=== PATIENT | male | born 1960 | race Caucasian/White ===

== ENCOUNTER 2024-03-28 06:02 | Day surgery (SDC) | payer OTHER, SELFPAY ==
[2024-03-25 06:57] VITALS: BMI 31.3
[2024-03-25 08:48] LABS: Hematocrit 43.5 % (39.0-52.0); Hemoglobin 14.5 g/dL (13.0-18.0); Mean Corp Hgb Conc. 33.3 g/dL (33.0-37.0); Mean Corpuscular Hgb 28.3 pg (27.0-31.0); Mean Corpuscular Volume 84.8 fL (80.0-94.0); Mean Platelet Volume 9.5 fL (7.4-10.4); Platelet Count 224 10^3/uL (130-400); Red Blood Cell Count 5.13 10^6/uL (4.70-6.10); Red Cell Dist. Width 13.4 % (11.5-14.5); White Blood Cell Count 8.5 10^3/uL (4.8-10.8)
[2024-03-25 09:22] LABS: Blood Urea Nitrogen 22 mg/dl (9-20); Calcium 10.2 mg/dl (8.4-10.2); Carbon Dioxide 28 mmol/L (22-30); Chloride 100 mmol/L (98-107); Estimated Creatinine Clearance 99 ml/min; Glucose 171 mg/dl (70-99); Potassium 5.3 mmol/L (3.5-5.1); Sodium 138 mmol/L (135-145); eGFR > 60.00
[2024-03-28] VITALS (8 sets, daily range): BP systolic 128–163; BP diastolic 79–96; BMI 31.3
--- NOTE | 2024-03-28 06:55 | W.SUR.PREOP ---
Pre-Operative Surgical Note
-
I have examined this patient prior to the performance of the scheduled procedure.
The patient's condition is unchanged from the time of the current History and
Physical and the patient is able to undergo the scheduled procedure.
[2024-03-28 07:19] LABS: Glucose - Point of Care 181 mg/dl (70-99)
[2024-03-28] MEDS: VANCOCIN 300 MG IV (07:19)
[2024-03-28] MEDS: VANCOCIN 300 ML IV (07:19)
[2024-03-28] MEDS: TYLENOL 1000 MG PO (07:22)
[2024-03-28] MEDS: NORMOSOL-R 1000 IV (07:29)
--- NOTE | 2024-03-28 09:33 | W.IMMPOSTOP ---
Addendum entered and electronically signed by Ace Todd MD 03/28/24 09:44:
#[id number]
Original Note:
Surgical Immed Post Op Note
-
Primary Surgeon: Peyton
Assisting Surgeon: SNEHAL Tao
Pre-op Diagnosis: Right inguinal hernia
Post-op Diagnosis: Right inguinal hernia; indirect
Procedure Performed: Open repair right inguinal hernia with mesh
Anesthesia Type: LMA + 1% lidocaine/0.25% Marcaine
Specimen / Cultures: None
Estimated Blood Loss: 8 mL
Complications: None immediate
Operative Findings: Large right indirect inguinal hernia; fat-containing. Contents easily from spermatic cord and completely reduced. Direct space normal. 7.5 x 15 cm Bard soft mesh Delmis tension-free repair.
The assistance of Shayla Mcnally PA-C was required due to the complexity of the procedure with this being a large indirect inguinal scrotal hernia. During the procedure Shayla Mcnally PA-C assisted with retraction and closure of the wound.
[2024-03-28 09:57] LABS: Glucose - Point of Care 178 mg/dl (70-99)
== END 2024-03-28 10:36 | disposition home or self-care (01) ==
LOC: SDS 06:02
PROVIDERS: ATTENDING PHYSICIAN Surgery; FAMILY PHYSICIAN Family Medicine; OTHER PHYSICIAN Internal Medicine Cardiovascular Disease
DX: K40.30 Unilateral inguinal hernia, with obstruction, without gangrene, not specified as recurrent (principal)
CPT/HCPCS: 49507; 36415; 80048; 82962; 85027; 87070; 93005